=== PATIENT | male | born 1970 | race Caucasian/White ===

== ENCOUNTER 2018-07-15 06:52 | Day surgery (SDC) | payer OTHER, MEDICAID ==
[~2018-07-15] VITALS: Ht 172.7 cm; Wt 67.3 kg
[~2018-07-15 06:52] MED LIST: AMPICILLIN SODIUM 1 GM/VIAL ONE; BISA-72 PO; CARMEX TP; CLOT12CR TP; RINGERS SOLUTION,LACTATED 1,000 ML IV ONE; SUNSCREEN TP; [UNRECOGNIZED DRUG - CODE] TP; [UNRECOGNIZED DRUG - CODE] TP; [UNRECOGNIZED DRUG - CODE] TP
[2018-07-15] MEDS ORDERED: TEMA15CA PO (07:06)
[2018-07-15] MEDS ORDERED: VITAD400 PO (07:35)
[2018-07-15] MEDS ORDERED: MULT-248 PO (07:35)
[2018-07-15] MEDS ORDERED: OS500 PO (07:35)
[2018-07-15] MEDS ORDERED: DOCU250C91 PO (07:35)
[2018-07-15] MEDS ORDERED: OXYMETAZOLINE HCL 0.05% 15 ML NASAL SPRAY NASAL ONE (07:37)
[2018-07-15] MEDS: RINGERS SOLUTION,LACTATED 1,000 ML IV ONE (08:28)
[2018-07-15] MEDS ORDERED: FentaNYL CITRATE-PF 100 MCG/2 ML VIAL IVP PRN (11:00)
[2018-07-15] MEDS ORDERED: MEPERIDINE-PF 25 MG/ML VIAL IVP PRN (11:00)
[2018-07-15] MEDS ORDERED: HYDROmorphone 2 MG/ML SYRINGE IVP PRN (11:00)
[2018-07-15] MEDS ORDERED: DEXAMETHASONE SOD PHOS 4 MG/ML VIAL IVP ONE (12:00)
[2018-07-15] MEDS ORDERED: FentaNYL CITRATE-PF 100 MCG/2 ML VIAL IVP ONE (12:00)
[2018-07-15] MEDS ORDERED: ROCURONIUM BROMIDE 10 MG/ML 5 ML VIAL IVP ONE (12:00)
[2018-07-15] MEDS ORDERED: LIDOCAINE/PF 2% 5 ML VIAL INJ ONE (12:00)
[2018-07-15] MEDS ORDERED: ONDANSETRON HCL 4 MG/2 ML VIAL IVP ONE (12:00)
[2018-07-15] MEDS ORDERED: PROPOFOL 1% 20 ML VIAL IVP ONE (12:00)
[2018-07-15] MEDS ORDERED: MIDAZOLAM HCL 2 MG/2 ML VIAL IVP ONE (12:00)
[2018-07-15] MEDS ORDERED: OXYGEN THERAPY IH SCH (20:00)
== END 2018-07-15 13:10 | disposition short-term general hospital (02) ==
LOC: SURGERY 06:52
PROVIDERS: ATTEND Dentist General Practice
DX: K05.30 Chronic periodontitis, unspecified (principal); D57.3 Sickle-cell trait; D64.9 Anemia, unspecified; Z79.899 Other long term (current) drug therapy; Z98.890 Other specified postprocedural states
CPT/HCPCS: 41899; J0290; J1100; J2250; J2405; J2704; J3010; J3490 ×2; J7120